=== PATIENT | female | born 1955 | race Caucasian/White ===

== ENCOUNTER → 2016-07-14 | Outpatient (CLI) | payer OTHER ==
[~2016-07-14] VITALS: Ht 172.7 cm; Wt 81.6 kg
[~2016-07-14] MED LIST: COZAAR 25 MG TA25 M1 PO; HAIR, SKIN & N1 EAC3 PO; SIMVASTATIN40 MG PO
--- NOTE | ~2016-07-14 | S ---
[facility] [address] [place] [address] SURGICAL PATH RPT PROCEDURE Name: BEV RIVERA Room #: REG CLGabriele Shore#: [id number] Admission: 07/14/16 Date of : 53 Discharge: Report #: [id number] Path Case #: [id number] PATHOLOGY REPORT DRAFT COLLECTION DATE: 07/14/2016 RECEIVED DATE: 07/14/2016 SPECIMEN(S) RECEIVED: A.Sigmoid colon polyp B.Rectal polyp
--- NOTE | ~2016-07-14 | P ---
[facility] [place] [address] PROCEDURE REPORT Name: BEV RIVERA Room #: REG [facility].#: [id number] Admission: 07/14/16 Attend Phys: Ronn Gore Discharge: Date of : 53 Report #: [id number] THIS REPORT FOR: //name// CC: Prince Mercado DATE OF SERVICE: 07/14/2016 PROCEDURE PERFORMED: Colonoscopy with biopsies. HISTORY OF PRESENT ILLNESS: The patient is a 61-year-old female with a history of colon polyps, multiple polyps 2 years ago. She is here for a 2-year followup. She denies any symptoms. She does have family history of colon cancer in her brother. DESCRIPTION OF PROCEDURE: The risks and benefits of the procedure were explained to the patient, those risks including but not limited to bleeding, perforation, the risk of sedation. She understood these risks and gave informed consent. Sedation was given using propofol per anesthesia. Next, a digital rectal exam was initially performed, which was normal. Next, using a standard [employer] colonoscope, the scope was placed in the patient's anus and advanced under direct vision to the cecum. The overall prep was good. In the cecum, there was a single nonbleeding AVM once again noted. This was only 3 mm in size. The ileocecal valve was normal in appearance. The ascending, transverse and descending colon were normal. In the sigmoid colon, there was a 3 mm sessile polyp. This was removed with cold forceps, otherwise normal. In the rectum, there was a single 4 mm sessile polyp also removed with cold forceps. On retroflexion, no abnormalities were noted. The scope was then withdrawn and the procedure terminated. The patient tolerated the procedure well. IMPRESSION: 1. Two small colonic polyps. 2. 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 No change in size from last exam. 3. Otherwise, normal colonoscopy. RECOMMENDATIONS: 1. Await biopsy results. 2. Repeat colonoscopy in [address] [address] PROCEDURE REPORT Name: BEV RIVERA Room #: REG CLGabriele Shore#: [id number] Admission: 07/14/16 Attend Phys: Ronn Gore Discharge: Date of : 53 Report #: [id number] Thank you for allowing me to participate in her care. <ELECTRONICALLY SIGNED> By: Ronn Nuñez MD 07/15/16 0952 [id number] 1132 Ronn Nuñez MD /nt
== END | disposition home or self-care (01) ==
LOC: GI 07-13 10:07
DX: Z12.11 Encounter for screening for malignant neoplasm of colon (principal); Q27.33 Arteriovenous malformation of digestive system vessel; D12.5 Benign neoplasm of sigmoid colon; D12.8 Benign neoplasm of rectum; F17.210 Nicotine dependence, cigarettes, uncomplicated; I10 Essential (primary) hypertension; E78.00 Pure hypercholesterolemia, unspecified; Z90.710 Acquired absence of both cervix and uterus
CPT/HCPCS: 62110

== ENCOUNTER → 2019-01-24 | Outpatient (CLI) | payer OTHER ==
[~2019-01-24] VITALS: Ht 172.7 cm; Wt 81.6 kg
[~2019-01-24] MED LIST changes: +ASA81BEC PO; +IMDUR 30 MG TAB30 M1 PO
--- NOTE | ~2019-01-24 | H ---
[facility] [place] [address] HISTORY AND PHYSICAL Name: KAYLIE STEPHENSORBEV Room #: REG [facility].#: [id number] Admission: 01/24/19 Attend Phys: Baldemar Jimenes Discharge: Date of : 53 Report #: [id number] THIS REPORT FOR: //name// CC: David Jimenes DATE OF SERVICE: 01/24/2019 HISTORY OF PRESENT ILLNESS: This is a very pleasant 63-year-old female seen in the office for suspected ischemic symptomatology. She underwent noninvasive assessment, demonstrated an intermediate to high risk study involving the anterolateral wall of left ventricle. In view of this, cardiac catheterization recommended and the patient now presents for evaluation. PHYSICAL EXAMINATION: GENERAL: Well-developed female, resting comfortably in no acute distress. HEENT: Normocephalic, atraumatic. Pupils are equal, round, reactive to light and accommodation. Extraocular muscles are intact. Sclerae and conjunctivae are anicteric. NECK: JVD is normal. Carotid upstrokes are bilaterally symmetrical. No bruits are heard. No thyromegaly. No lymphadenopathy. LUNGS: Clear to auscultation. No wheezes, rhonchi or crackles. No CVA tenderness. CARDIAC: Demonstrates a regular rhythm. Normal first and second heart sounds. No ventricular or atrial gallops, no rubs noted. No murmurs. No lifts or heaves, PMI normal. ABDOMEN: Soft, nontender, nondistended. Normal bowel sounds. EXTREMITIES: Without cyanosis, clubbing or edema. Distal pulses are intact. DTR symmetrical. NEUROLOGIC: Cranial nerves 2-12 are grossly normal and symmetrical. PSYCHIATRIC: Alert, oriented with normal affect. SKIN: Warm and dry. IMPRESSION AND PLAN: Exertional dyspnea, abnormal perfusion scanning suspicious for ischemia in a high risk study. In view of this, we will proceed directly angiography. The risks, complications and alternatives to cardiac catheterization, percutaneous revascularization, conscious sedation have been discussed with the patient. She voices understanding and wishes to proceed. By: [id number] Baldemar Jimenes MD /nt
[2019-01-24 08:43] VITALS: BP 156/91
--- NOTE | 2019-01-24 09:26 | EKG ---
[place] [address] [facility] [place] [address] ELECTROCARDIOGRAM REPORT Name: [facility]EV RIVERA [id number] Admission: 01/24/19 Attend Phys: Baldemar Jimenes Discharge: Date of : 53 Report #: [id number] THIS REPORT FOR: //name// [facility] Test Date: 2019-01-24 Test Time: 08:51:46 Pat Name: BEV MALDONADO Department: Room: Gender: F Family Support Specialist: Stuart LEPE : 1955 Requested By: Baldemar Jimenes Order Number: [id number] MD: Indra Dial Measurements Intervals [place] Rate: 88 P: 64 IN: 171 QRS: 30 QRSD: 90 T: 43 QT: 359 QTc: 435 Interpretive Statements Sinus rhythm Normal tracing No previous ECG available for comparison Electronically Signed On 01-24-2019 9:26:29 MANAGEMENT DEVELOPER by Indra Dial [email or web address] <ELECTRONICALLY SIGNED> By: Indra Dial MD, [facility] 01/24/19 0926 0851 08 Indra Dial MD, FACC /EPI
--- NOTE | 2019-02-03 11:16 | CATHLAB ---
[facility] [address] [place] [address] INVASIVE PROCEDURE REPORT Name: LOTT ERICABEV MORALES Room #: [facility] [id number] Admission: 01/24/19 Attend Phys: Baldemar Alfaro Discharge: Date of : 53 Report #: [id number] THIS REPORT FOR: //name// APPROVED REPORT Study performed: 01/24/2019 10:51:16 Patient Details Patient Status: Out-Patient Room #: The patient is a 63 year-old female Event Personnel Baldemar Jimenes Salesman/Owner, Elo [place] RTR, STAFF COUNSELOR Monitor, Marion Galicia RN RN, Susana Laurent RTR Scrub Procedures Performed Art Access - R femoral artery* Left Heart Cath w/or w/o Coronaries [id number] [facility] Hemostasis with Manual pressure 85002 Initial Mod Sed Same Phys/QHP Gr5y 553802, supervision of conscious sedation Indication Positive stress test Procedure Narrative The Right Groin^ was infiltrated with 1% Lidocaine subcutaneous anesthesia. A PINNACLE 4FR Sheath #[id number] sheath was inserted into the RFA^. Coronary angiography was performed using coronary diagnostic catheters. The right coronary system was accessed and visualized with a JR4 catheter. The left coronary system was accessed and visualized with a JL4 catheter. The left ventricle was accessed and visualized with a ANGLED PIGTAIL catheter. Left ventricular/Aortic Valve gradient assessed via catheter pullback. Hemostasis was obtained with manual pressure following sheath removal without any complications. The patient tolerated the procedure well and there were no complications associated with the procedure. There was no hematoma. Intraoperative Conscious Sedation Sedation start time: 10:33 Case end Time: 10:58 Versed 2 mg Fluoro Time: 2.90 minutes [facility] [address] [place] [address] INVASIVE PROCEDURE REPORT Name: BEV RIVERA Room #: REG [facility]#: [id number] Admission: 01/24/19 Attend Phys: Baldemar Alfaro Discharge: Date of : 53 Report #: [id number] Dose: DAP 5465.00 cGycm2 972 mGy Contrast Type and Amount: Omnipaque 50 ml Coronary Angiography The patient's coronary anatomy is right dominant. Diagnostic Cath Left Main Left ventricle normal origin and caliber bifurcates that anterior descending left circumflex. The distal portion tapers to a 40% eccentric lesion at the origin of the LAD and circumflex. LAD Small to moderate caliber type III vessel courses in the anterior interventricular sulcus. There is evidence of fluoroscopic calcification present but no intraluminal lesions I identified except for luminal irregularities. Gives rise to diagonal branches which are small in caliber and free of high-grade disease Diagonal 1 More significantly caliber vessel without high-grade lesions noted Circumflex Small caliber vessel which gives rise to early general branch may be a ramus intermedius. There is an eccentric lesion of approximately 40-50% after the origin of this vessel and the circumflex proper is a continues in the AV groove giving rise to posterior lateral wall marginal branch which is small in caliber. The circumflex then continues as a string-like vessel in the posterior aspect of the left ventricle. There is luminal irregularities noted of less than 50% beyond the initial proximal lesion mentioned earlier OM1 Small-caliber vessel free of high-grade disease OM2 Caliber vessel with mild luminal irregularities noted less than 50% and nonobstructive Right Coronary Small-caliber vessel normal origin with evidence of fluoroscopic epicardial calcifications. It courses in the AV groove to the acute margin where there is an eccentric lesion at the origin of the RV marginal branch. This appears to be less than 50% low limiting. The vessel then continues on to the crux of the heart is a small-caliber posterior descending artery and terminates small-caliber posterior wall branch. R PDA Small-caliber vessel is significant high-grade lesions noted with only luminal irregularities throughout its course Left Ventriculography Left Ventriculography was not performed. Hemodynamics The aortic pressure is 173/92 mmHg with a mean of 127 mmHg. The left ventricular pressure is 167/8 mmHg with a mean of mmHg. The left [facility] [address] [place] [address] INVASIVE PROCEDURE REPORT Name: BEV RIVERA Room #: REG FLOYD Shore#: [id number] Admission: 01/24/19 Attend Phys: Baldemar Alfaro Discharge: Date of : 53 Report #: [id number] ventricular end diastolic pressure is 18 mmHg. Conclusion 1. Coronary disease mild multivessel with nonobstructive luminal irregularities noted as stated above 2. Abnormal hemodynamics with elevated left ventricular end-diastolic pressure Recommendations Medical Therapy <ELECTRONICALLY SIGNED> By: Baldemar Jimenes MD 02/03/19 1115 14 111 Baldemar Jimenes MD /INF
== END | disposition home or self-care (01) ==
LOC: CATH 07:58
DX: R94.39 Abnormal result of other cardiovascular function study (principal); I25.10 Atherosclerotic heart disease of native coronary artery without angina pectoris; R06.00 Dyspnea, unspecified; I10 Essential (primary) hypertension; E78.00 Pure hypercholesterolemia, unspecified; F17.210 Nicotine dependence, cigarettes, uncomplicated; E78.5 Hyperlipidemia, unspecified; E66.09 Other obesity due to excess calories; Z98.890 Other specified postprocedural states; Z79.82 Long term (current) use of aspirin; Z79.899 Other long term (current) drug therapy; Z82.49 Family history of ischemic heart disease and other diseases of the circulatory system; Z90.711 Acquired absence of uterus with remaining cervical stump

== ENCOUNTER → 2019-09-11 | Outpatient (CLI) | payer OTHER | LOC: SJCVC 09:44 | PROVIDERS: ATTEND Internal Medicine | DX: I25.10 Atherosclerotic heart disease of native coronary artery without angina pectoris (principal); I49.9 Cardiac arrhythmia, unspecified; I10 Essential (primary) hypertension; I73.9 Peripheral vascular disease, unspecified; E78.5 Hyperlipidemia, unspecified; F17.200 Nicotine dependence, unspecified, uncomplicated; Z79.899 Other long term (current) drug therapy ==

== ENCOUNTER → 2019-09-26 | Outpatient (CLI) | payer OTHER | LOC: SJCVCIMAG 07:28 | PROVIDERS: ATTEND Internal Medicine | DX: I70.203 Unspecified atherosclerosis of native arteries of extremities, bilateral legs (principal); M79.604 Pain in right leg; M79.605 Pain in left leg; F17.210 Nicotine dependence, cigarettes, uncomplicated ==

== ENCOUNTER → 2020-10-06 | Outpatient (CLI) | payer OTHER | LOC: SJCVC 15:10 | PROVIDERS: ATTEND Nuclear Medicine Nuclear Cardiology | DX: I73.9 Peripheral vascular disease, unspecified (principal); I25.10 Atherosclerotic heart disease of native coronary artery without angina pectoris; I10 Essential (primary) hypertension; E78.00 Pure hypercholesterolemia, unspecified; E78.5 Hyperlipidemia, unspecified; F17.200 Nicotine dependence, unspecified, uncomplicated; Z90.710 Acquired absence of both cervix and uterus; Z79.82 Long term (current) use of aspirin; Z79.899 Other long term (current) drug therapy ==

== ENCOUNTER → 2020-10-19 | Outpatient (CLI) | payer OTHER ==
[~2020-10-19] VITALS: Ht 172.7 cm; Wt 86.2 kg
[~2020-10-19] MED LIST changes: +BIOTIN1 M1 PO; +LORATIDINE 10 M10 M1 PO; +PLAVIX 75 MG TA75 MG PO
[2020-10-19 08:02] LABS: HEMATOCRIT 44.1 % (37.0-47.0); HEMOGLOBIN 14.9 gm/dL (12.0-15.0); MCH 31.9 pg (26.0-34.0); MCHC 33.7 g/dL (28.0-37.0); MCV 94.7 fL (80.0-100.0); RBC 4.66 mil/uL (4.20-5.00); RDW 13.3 % (10.5-14.5); WBC 7.9 thou/uL (4.0-11.0)
[2020-10-19 08:29] LABS: CALCIUM 9.4 mg/dL (8.5-10.1); CREATININE 0.7 mg/dL (0.6-1.0); POTASSIUM 4.1 mmol/L (3.5-5.1)
== END | disposition home or self-care (01) ==
LOC: CATH 06:50
PROVIDERS: ATTEND Nuclear Medicine Nuclear Cardiology
DX: I70.212 Atherosclerosis of native arteries of extremities with intermittent claudication, left leg (principal); I70.1 Atherosclerosis of renal artery; I10 Essential (primary) hypertension; I25.10 Atherosclerotic heart disease of native coronary artery without angina pectoris; M79.605 Pain in left leg; E78.00 Pure hypercholesterolemia, unspecified; F17.210 Nicotine dependence, cigarettes, uncomplicated; Z98.890 Other specified postprocedural states; Z79.899 Other long term (current) drug therapy; Z90.711 Acquired absence of uterus with remaining cervical stump

== ENCOUNTER → 2021-01-21 | Outpatient (CLI) | payer OTHER | LOC: SJCVCIMAG 09:52 | PROVIDERS: ATTEND Nuclear Medicine Nuclear Cardiology | DX: I65.23 Occlusion and stenosis of bilateral carotid arteries (principal); I70.203 Unspecified atherosclerosis of native arteries of extremities, bilateral legs; E78.00 Pure hypercholesterolemia, unspecified; I10 Essential (primary) hypertension; I25.10 Atherosclerotic heart disease of native coronary artery without angina pectoris; F17.200 Nicotine dependence, unspecified, uncomplicated; Z79.82 Long term (current) use of aspirin; Z79.899 Other long term (current) drug therapy; E78.5 Hyperlipidemia, unspecified; Z72.89 Other problems related to lifestyle ==

== ENCOUNTER → 2021-01-25 | Outpatient (CLI) | payer OTHER | LOC: SJCVC 14:25 | PROVIDERS: ATTEND Nuclear Medicine Nuclear Cardiology | DX: I73.9 Peripheral vascular disease, unspecified (principal); I77.9 Disorder of arteries and arterioles, unspecified; I25.10 Atherosclerotic heart disease of native coronary artery without angina pectoris; I10 Essential (primary) hypertension; E78.00 Pure hypercholesterolemia, unspecified; E78.5 Hyperlipidemia, unspecified; F17.200 Nicotine dependence, unspecified, uncomplicated; Z72.89 Other problems related to lifestyle; Z79.82 Long term (current) use of aspirin; Z79.899 Other long term (current) drug therapy ==

== ENCOUNTER → 2021-03-25 | Outpatient (CLI) | payer OTHER | LOC: SJCVCIMAG 09:54 | PROVIDERS: ATTEND Nuclear Medicine Nuclear Cardiology | DX: T82.856A Stenosis of peripheral vascular stent, initial encounter (principal); I73.9 Peripheral vascular disease, unspecified; I77.9 Disorder of arteries and arterioles, unspecified; I25.10 Atherosclerotic heart disease of native coronary artery without angina pectoris; I10 Essential (primary) hypertension; E78.00 Pure hypercholesterolemia, unspecified; E78.5 Hyperlipidemia, unspecified; F17.200 Nicotine dependence, unspecified, uncomplicated; Z72.89 Other problems related to lifestyle; Z79.82 Long term (current) use of aspirin; Z79.899 Other long term (current) drug therapy; Z88.8 Allergy status to other drugs, medicaments and biological substances ==

== ENCOUNTER → 2021-04-05 | Outpatient (CLI) | payer OTHER ==
[~2021-04-05] VITALS: Ht 172.7 cm; Wt 83.9 kg
[2021-04-05 07:55] VITALS: BP 147/86
[2021-04-05 07:59] LABS: HEMATOCRIT 40.6 % (37.0-47.0); HEMOGLOBIN 13.9 gm/dL (12.0-15.0); MCH 31.6 pg (26.0-34.0); MCHC 34.2 g/dL (28.0-37.0); MCV 92.6 fL (80.0-100.0); RBC 4.39 mil/uL (4.20-5.00); RDW 13.4 % (10.5-14.5); WBC 6.2 thou/uL (4.0-11.0)
[2021-04-05 08:07] LABS: CALCIUM 9.4 mg/dL (8.5-10.1); CREATININE 0.5 mg/dL (0.6-1.0); POTASSIUM 3.9 mmol/L (3.5-5.1)
--- NOTE | 2021-04-05 11:47 | NUR ---
MEAL TRAY GIVEN TO PT WITH PTS DAUGHTER AT BEDSIDE. PT A/OX3 WITH NO C/O.
== END | disposition home or self-care (01) ==
LOC: CATH
PROVIDERS: ATTEND Nuclear Medicine Nuclear Cardiology
DX: I70.248 Atherosclerosis of native arteries of left leg with ulceration of other part of lower leg (principal); L97.929 Non-pressure chronic ulcer of unspecified part of left lower leg with unspecified severity; T82.856A Stenosis of peripheral vascular stent, initial encounter; M79.605 Pain in left leg; I70.1 Atherosclerosis of renal artery; I10 Essential (primary) hypertension; I25.10 Atherosclerotic heart disease of native coronary artery without angina pectoris; E78.5 Hyperlipidemia, unspecified; F17.210 Nicotine dependence, cigarettes, uncomplicated; Z98.890 Other specified postprocedural states; Z79.899 Other long term (current) drug therapy; Z79.82 Long term (current) use of aspirin; Y83.8 Other surgical procedures as the cause of abnormal reaction of the patient, or of later complication, without mention of misadventure at the time of the procedure